=== PATIENT | female | born 1970 | race African-American/Black ===

== ENCOUNTER 2016-11-13 11:22 | Emergency (ER) | payer MEDICAID ==
[~2016-11-13] VITALS: Ht 152.4 cm; Wt 93.0 kg
[~2016-11-13 11:22] MED LIST: ALBU8I INH; CALCTAB70 PO; DEPA500T PO; FURO1TAB93 PO; HYDR1CRE TOP; IBUP800T23 PO; LANTUS2P SC; LISI-360 PO; METF850T PO; METO100T PO; MOME17I; NORC7.5T PO; NOVORP2 SQ; OXCA150T2 PO; OXYB5TAB PO; POTA-267 PO; PREG100 PO; SUMA6P SQ; TAB-TAB PO; WAL-10TA2 PO; XALA0.00 EACH EYE
[2016-11-13 11:25] VITALS: BP 171/89; PULSE 80; RESP 15; TEMP 97.9; O2SAT 96
--- NOTE | 2016-11-13 13:55 | PD ---
HPI Chief Complaint: Musculoskeletal Complaint Time Seen by Provider: 13:48 Travel History International Travel<30 days: No Contact w/Intl Traveler<30days: No Traveled to known affect area: No History of Present Illness HPI 46 year-old female presents to emergency for evaluation right index finger pain for the last 2 months. The pain is aching, intermittent Patient does not recall injury. States that when she writes sometimes her PIP joint is painful. Denies any limitations range of motion alterations in sensation. She has not taken anything for the pain. She has no other symptoms to report. History Past Medical Histgory Medical History: Denies Significant Hx Hx Cancer: No Social History Alcohol Use: No Tobacco Use: No Allergies-Medications (Allergen,Severity, Reaction): Coded Allergies: ceftriaxone (Unverified Allergy, Severe, Rash, 09/21/16) meropenem (Unverified Allergy, Severe, RASH, EOSINOPHILS, 09/21/16) ampicillin (Unverified Allergy, Unknown, 09/21/16) aztreonam (Unverified Allergy, Unknown, 09/21/16) cefepime (Unverified Allergy, Unknown, 09/21/16) ceftaroline fosamil (Unverified Allergy, Unknown, 09/21/16) clindamycin (Unverified Allergy, Unknown, 09/21/16) levetiracetam (Unverified Allergy, Unknown, 09/21/16) penicillin G (Unverified Allergy, Unknown, 09/21/16) phenytoin (Unverified Allergy, Unknown, 09/21/16) sulbactam (Unverified Allergy, Unknown, 09/21/16) vancomycin (Unverified Allergy, Unknown, 09/21/16) Reported Meds & Prescriptions Reported Meds & Active Scripts Active Reported Klor-Con 10 (Potassium Chloride) 10 Meq Tab 20 Meq PO DAILY Ibuprofen 800 Mg Tab 800 Mg PO Q8HR PRN Furosemide 40 Mg Tab 40 Mg PO DAILY Lisinopril 10 mg (Lisinopril) 10 Mg Tab 1 Tab PO DAILY Imitrex (Sumatriptan Succinate) 6 Mg/0.5 Ml Inj 6 Mg SQ ONCE PRN Depakote 500 mg (Divalproex Sodium) 500 Mg Tab 1 Tab PO Q8HR Metoprolol Tartrate 100 mg (Metoprolol Tartrate) 100 Mg Tab 100 Mg PO BID Oxcarbazepine 150 Mg Tab 150 Mg PO DAILY Multivitamin (Multivitamins) 1 Tab Tab 1 Tab PO DAILY Calcium 600 + D (Calcium Carbonate-Vitamin D) + D Tab 1 Tab PO BID Lantus (Insulin Glargine) 100 Units/Ml Inj 10 Unit SC HS Lyrica (Pregabalin) 100 Mg Cap 100 Mg PO DAILY [place] 7.5/325 (Hydrocodone/Acetaminophen 7.5/325) 7.5 Mg/325 Mg Tab 1 Tab PO Q4H PRN Ventolin Hfa (Albuterol Sulfate) 8 Gm Aero 2 Puff INH Q6 PRN * SHAKE WELL BEFORE USE * Novolin R 100 Units/Ml (Insulin Human Regular) 100 Units/Ml Inj 5 Units SQ DIRECTED SLIDING SCALE Loratadine 10 Mg Tab 10 Mg PO DAILY Xalatan (Latanoprost) 0.005 % Minerva 1 Drop EACH EYE DAILY Metformin (Metformin HCl) 850 Mg Tab 850 Mg PO BIDPC Oxybutynin Chloride 5 Mg Tab 5 Mg PO DAILY Hydrocortisone 1 % Cre 1 Applic TOP BID PRN Nasonex (Mometasone Furoate) 50 Mcg/Ac Spr 2 Cos [place] NA BID SPRAY IN EACH NOSTRIL Review of Systems Except as stated in HPI: all other systems reviewed are Neg Physical Exam Narrative GENERAL: Well-nourished female patient, in no acute distress SKIN: Focused skin assessment warm/dry. HEAD: Atraumatic. Normocephalic. EYES: Pupils equal and round. No scleral icterus. No injection or drainage. ENT: No nasal bleeding or discharge. Mucous membranes pink and moist. NECK: Trachea midline. No JVD. CARDIOVASCULAR: Regular rate and rhythm. No murmur appreciated. RESPIRATORY: No accessory muscle use. Clear to auscultation. Breath sounds equal bilaterally. MUSCULOSKELETAL: Patient has full flexion and extension of the affected digit. Cap refill within normal limits. No deformity. No erythema. No edema. NEUROLOGICAL: Awake and alert. No obvious cranial nerve deficits. Motor grossly within normal limits. Normal speech. Data Data Last Documented VS Vital Signs Date Time Temp Pulse Resp B/P (MAP) Pulse Ox O2 Delivery O2 Flow Rate FiO2 11/13/16 11:25 97.9 80 15 171/89 (116) 96 MDM Medical Screen Exam Complete: Yes Emergency Medical Condition: No Differential Diagnosis R INDEX FINGER PAIN X 2 MONTHS Narrative Course 46 year-old female presents to the emergency department for evaluation of right index finger pain 2 months. Patient's affected finger appears within normal limits. She has full range of motion area no erythema or edema. No deformity. At this time there are no urgent or emergent needs for medical intervention identified. A medical screening exam was performed: At the time of evaluation the presenting medical condition was determined not to be of an emergent nature. The patient was given the option of receiving additional care, but declined. Patient was given options for additional community resources from which to obtain care. The Patient Has Been advised to seek medical attention for their presenting complaint. The patient has been advised to return to the ER at any time if an emergent condition develops. Primary Impression: Encounter for medical screening examination Condition: Trina Guzman Nov 13, 2016 13:55
== END 2016-11-13 15:06 | disposition left against medical advice (07) ==
LOC: NEPD 11:22
DX: M79.645 Pain in left finger(s) (principal)
CPT/HCPCS: 99281